=== PATIENT | female | born 1975 | race Caucasian/White ===

== ENCOUNTER 2016-04-05 15:47 | Outpatient (CLI) | payer OTHER ==
[2015-11-24 13:34] VITALS: BP 132/74
[2016-04-05 16:13] LABS: BASOPHILS % 0.3 (0.0-1.5); LYMPHOCYTES # 2.1 # k/uL (0.6-4.0); MEAN CORPUSCULAR HEMOGLOBIN 32.1 pg (28.0-34.0); MONOCYTES # 0.4 # k/uL (0.0-0.9); MONOCYTES % 5.3 % (0.0-11.0); NEUTROPHILS # 5.7 # k/uL (1.4-7.7)
[2016-04-05 16:31] LABS: eGFR (African) > 60; eGFR (Non-African) > 60
[2016-04-07 12:00] LABS: ADENOVIRUS F 40/41 Not Detected (Not Detected); ASTROVIRUS Not Detected (Not Detected); C. DIFFICILE (TOXIN A/B) Not Detected (Not Detected); CRYPTOSPORIDIUM Not Detected (Not Detected); CYCLOSPORA CAYETANENSIS Not Detected (Not Detected); ENTAMOEBA HISTOLYTICA Not Detected (Not Detected); GIARDIA LAMBLIA Not Detected (Not Detected); ROTAVIRUS A Not Detected (Not Detected); SAPOVIRUS Not Detected (Not Detected); VIBRIO CHOLERAE Not Detected (Not Detected)
== END 2016-04-05 15:50 ==
LOC: LAB 15:47
PROVIDERS: ATTEND Physician Assistant
DX: A09 Infectious gastroenteritis and colitis, unspecified (principal)
CPT/HCPCS: 36415; 80053; 85025; 87507

== ENCOUNTER 2016-06-20 16:08 | Outpatient (CLI) | payer OTHER ==
[2015-11-24 13:34] VITALS: BP 132/74
--- NOTE | 2016-06-20 17:45 | Diagnostic Imaging Report ---
[facility] [address] [facility].[address] [address] Report Submission Date: June 20, 2016 5:32:42 PM CDT Patient Study Name: KIRSTEN DUNHAM Date: June 20, 2016 4:14:59 PM CDT Modality Type: CR Gender: F Description: LOWER EXTREMITY : 73 Institution: [facility] Physician: DANAE HORTON - OP 3 views of the right foot Clinical history: Right foot pain Findings: No acute fracture dislocation is identified. The alignment is normal. The soft tissues are unremarkable. Impression: Negative Electronically signed on June 20, 2016 5:32:42 PM CDT by: Clive PURDY
== END 2016-06-20 16:10 ==
LOC: RAD 16:08
PROVIDERS: ATTEND Family Medicine
DX: M79.671 Pain in right foot (principal)
CPT/HCPCS: 73630

== ENCOUNTER 2016-08-28 17:49 | Emergency (ER) | payer OTHER ==
[2016-08-28] MEDS: 0.9 % SODIUM CHLORIDE 1,000 ML IV ONE (18:10)
[2016-08-28 18:18] LABS: BASOPHILS % 0.6 (0.0-1.5); EOSINOPHILS % 1.5 % (0.0-6.8); MEAN CORPUSCULAR HEMOGLOBIN 31.8 pg (28.0-34.0); MEAN CORPUSCULAR VOLUME 91.3 fl (80.0-100.0); MONOCYTES % 6.9 % (0.0-11.0); NEUTROPHILS # 6.9 # k/uL (1.4-7.7)
[2016-08-28 18:36] LABS: eGFR (African) > 60; eGFR (Non-African) > 60
--- NOTE | 2016-08-28 18:44 | ED Physician Documentation ---
General Adult - HISTORIAN Historian: patient - HPI Stated Complaint: finger pain Chief Complaint: General Adult Further Comments: yes (41 year old female patient presents with complaints of numbness and tingling in right and left ring fingers. Patient reports coming home today from a weekend float trip[place], reports drinking "large" amount of ETOH Monday. Reports no water intake. C/O sunburn on entire body. C/o mild MÉNDEZ.) - ROS CONST: no problems EYES/ENT: none CVS/RESP: none GI/: none MS/SKIN/LYMPH: none NEURO/PSYCH: headache - PAST HX Past History: none Allergies/Adverse Reactions: Allergies Allergy/AdvReac Type Severity Reaction Status Date / Time hydromorphone HCl Allergy Intermediate Rash Verified 08/28/16 18:16 [From Dilaudid] - SOCIAL HX Smoking History: cigarettes Alcohol Use: heavy (daily) - FAMILY HX Family History: No - VITAL SIGNS Vital Signs: Vital Signs Temp Pulse Resp BP Pulse Ox 98.4 F 100 H 18 139/98 98 08/28/16 18:00 08/28/16 18:00 08/28/16 18:00 08/28/16 18:00 08/28/16 18:00 - REVIEWED ASSESSMENTS Nursing Assessment Reviewed: Yes Vitals Reviewed: Yes Progress - Progress Progress: Reviewed lab results with patient. Education on hyponatremia related to polydipsia. Offered admission for monitoring. Patient does not want admission at this time. Risk and benefits explained. Reviewed out patient plan of care - encouraged rest, fluid restriction and follow up with Dr Conroy Monday. Patient verbalized understanding. ED Results Lab/Radiology - Lab Results Lab Results: Lab Results 08/28/16 08/28/16 18:11 18:11 WBC 10.50 K/ul K/ul (4.00-12.00) RBC 4.73 M/ul M/ul (3.90-5.20) Hgb 15.1 g/dL g/dL (12.0-16.0) Hct 43.2 % % (34.5-46.5) MCV 91.3 fl fl (80.0-100.0) MCH 31.8 pg pg (28.0-34.0) MCHC 34.9 g/dL g/dL (30.0-36.0) RDW 13.1 % % (11.3-14.3) Plt Count 199 K/mm3 K/mm3 (130-400) Neut % (Auto) 65.9 % % (39.0-79.0) Lymph % (Auto) 23.2 % % (16.0-50.0) Bandera % (Auto) 6.9 % % (0.0-11.0) Eos % (Auto) 1.5 % % (0.0-6.8) Baso % (Auto) 0.6 (0.0-1.5) Neut # (Auto) 6.9 # k/uL # k/uL (1.4-7.7) Lymph # (Auto) 2.4 # k/uL # k/uL (0.6-4.0) Bandera # (Auto) 0.7 # k/uL # k/uL (0.0-0.9) Eos # (Auto) 0.2 # k/uL # k/uL (0.0-0.6) Baso # (Auto) 0.1 # k/uL # k/uL (0.0-0.5) Reactive Lymphs % 2.0 % % (0.0-5.0) Reactive Lymphs # 0.2 # k/uL # k/uL (0.0-0.8) Sodium 127 mmol/L L mmol/L (136-145) Potassium 3.5 mmol/L mmol/L (3.5-5.0) Chloride 94 mmol/L L mmol/L (98-110) Carbon Dioxide 26 mmol/L mmol/L (20-32) BUN 7 mg/dL L mg/dL (10-26) Creatinine 0.7 mg/dL mg/dL (0.4-1.5) Estimated Creat Clear 149 Est GFR ( Amer) > 60 (60 - ) Est GFR (Non-Af Amer) > 60 (60 - ) Glucose 118 mg/dL H mg/dL (70-99) Calcium 9.1 mg/dL mg/dL (8.5-10.5) Total Bilirubin 1.6 mg/dL H mg/dL (0.2-1.2) AST 31 U/L U/L (0-41) ALT 32 U/L U/L (0-45) Alkaline Phosphatase 70 U/L U/L (46-116) Total Protein 8.3 g/dL g/dL (6.0-8.5) Albumin 4.4 g/dL g/dL (3.0-5.5) - Orders Orders: ED Orders Category Date Time Status Place IV Lock 1T Care 08/28/16 18:02 Active CBC/PLATELET/DIFF Stat Lab 08/28/16 18:11 Completed CMP Stat Lab 08/28/16 18:11 Completed 0.9 % Sodium Chloride [Normal Saline] 1,000 ml Med 08/28/16 18:02 Discontinued IV NOW General Adult Physical Exam - PHYSICAL EXAM GENERAL APPEARANCE: mild distress EENT: eye inspection normal, DENY RESPIRATORY: no resp distress, chest non-tender, breath sounds normal CVS: reg rate & rhythm, heart sounds normal, equal pulses, no murmur, no gallop , PMI nml, no JVD, no friction rub, 24 ABDOMEN: soft, no organomegaly, normal bowel sounds, no abdominal bruit, no distension SKIN: warm/dry, normal color, other (sunburn on truck, arms and legs - 1st degree) EXTREMITIES: non-tender, normal range of motion, no evidence of injury, no edema , J, 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 Condition: Stable Disposition: 01 HOME, SELF-CARE Decision to Admit: NO Decision Time: 18:52
[2016-08-28 20:16] VITALS: BP 161/94
== END 2016-08-28 19:05 | disposition home or self-care (01) ==
LOC: ED 17:49
DX: E87.1 Hypo-osmolality and hyponatremia (principal)
CPT/HCPCS: 80053; 85025; J7030; 96360; 99283; S1016

== ENCOUNTER 2017-04-04 10:21 | Outpatient (CLI) | payer BC ==
[2017-04-04 10:35] LABS: BASOPHILS % 0.4 (0.0-1.5); EOSINOPHILS % 1.6 % (0.0-6.8); MEAN CORPUSCULAR HEMOGLOBIN 31.6 pg (28.0-34.0); MEAN CORPUSCULAR VOLUME 94.2 fl (80.0-100.0); MONOCYTES % 7.7 % (0.0-11.0)
[2017-04-04 11:02] LABS: eGFR (African) > 60; eGFR (Non-African) > 60
== END 2017-04-04 10:22 ==
LOC: LAB 10:21
PROVIDERS: ATTEND Physician Assistant
DX: R20.2 Paresthesia of skin (principal)
CPT/HCPCS: 36415; 80053; 82607; 85025

== ENCOUNTER 2017-09-15 09:45 | Emergency (ER) | payer BC ==
--- NOTE | 2017-09-15 09:55 | ED Physician Documentation ---
General Adult - HISTORIAN Historian: patient - HPI Stated Complaint: "feeling off" Chief Complaint: Weakness Onset: days ago (2) Timing: still present Severity: moderate Further Comments: yes (She does note a history of COPD and for last few days not feeling "well" however this am when she did wake she was more short on air than usual. She denies any fever. She has some weakness and feeling fatigued today so she left work. She denies any chest pain. She does continue to smoke. She was treated at the ER at the [place] and she was told she had hypertension. She is not taking any meds for COPD) - ROS CONST: no problems EYES/ENT: denies: sore throat, nasal drainage CVS/RESP: shortness of breath, cough. denies: chest pain GI/: none MS/SKIN/LYMPH: none. denies: rash NEURO/PSYCH: headache, dizziness - PAST HX Past History: hypertension Surgeries/Procedures: hysterectomy Immunizations: referred to PCP Allergies/Adverse Reactions: Allergies Allergy/AdvReac Type Severity Reaction Status Date / Time hydromorphone HCl Allergy Intermediate Rash Verified 09/15/17 10:03 [From Dilaudid] varenicline tartrate Allergy Hallucinati Verified 09/15/17 10:03 [From Chantix] ons - SOCIAL HX Smoking History: cigarettes Alcohol Use: none Drug Use: none - FAMILY HX Family History: No - VITAL SIGNS Vital Signs: Vital Signs Temp Pulse Resp BP Pulse Ox 161/94 08/28/16 19:05 - REVIEWED ASSESSMENTS Nursing Assessment Reviewed: Yes Vitals Reviewed: Yes Progress - Progress Progress: 1050: symptoms are improving per her statement. DG 1056: results and plan discussed with pt and father. Voiced understanding and agreement DG ED Results Lab/Radiology - Radiology Radiology Impressions: Examination: PA and lateral chest. History: Evaluate lung garrison. CXR, WEAKNESS TODAY, PT STATES HX OF COPD, SMOKER (Hx) Comparison exam: None provided. Findings: PA lateral chest demonstrate a normal cardiac and mediastinal silhouette. No focal infiltrate. No blunting of the costophrenic margins. Osseous structures are appropriate for age. Impression: No acute pulmonary process. Electronically signed on Sep 15, 2017 10:39:12 AM CDT by: Elroy Rush General Adult Physical Exam - PHYSICAL EXAM GENERAL APPEARANCE: mild distress EENT: eye inspection normal, ENT inspection normal, pharynx normal, TM's nml NECK: normal inspection RESPIRATORY: wheezes, rhonchi (expiratory -mild resp distress - she is able to speak full sentences with mild shortness of air ) ABDOMEN: soft, normal bowel sounds, no distension BACK: normal inspection SKIN: warm/dry, normal color EXTREMITIES: non-tender, normal range of motion, no evidence of injury, no edema NEURO: oriented X3, CN's nml as tested, motor nml, sensation nml, mood/affect nml, cognition normal Discharge Clincal Impression: Bronchitis Referrals: Luis Carlos Conroy MD [Primary Care Provider] - 2 Days Additional Instructions: 1. ProAir 90 mcg take 2 puffs by mouth every 4-6 hours as needed for cough 2. Medrol Dose pack 4 mg - take as directed start 09.16.2017 at noon 3. Stop smoking 4. Follow up with PCP as scheduled 5. Return to ER for any concerns Condition: Stable Disposition: 01 HOME, SELF-CARE Decision to Admit: NO Date of Decison to Admit: 09/15/17 Decision Time: 10:59
[2017-09-15] MEDS: IPRATROPIUM/ALBUTEROL SULFATE 3 ML AMPUL.NEB NEB ONE (10:12)
[2017-09-15 10:26] LABS: BASOPHILS % 0.5 (0.0-1.5); EOSINOPHILS % 1.3 % (0.0-6.8); MEAN CORPUSCULAR HEMOGLOBIN 31.5 pg (28.0-34.0); MEAN CORPUSCULAR VOLUME 94.6 fl (80.0-100.0); MONOCYTES % 6.3 % (0.0-11.0); NEUTROPHILS # 3.6 # k/uL (1.4-7.7)
[2017-09-15 10:42] LABS: eGFR (African) > 60; eGFR (Non-African) > 60
[2017-09-15] MEDS: methylPREDNISolone SOD SUCC 125 MG/2 ML VIAL ONE (10:59)
[2017-09-15] MEDS: methylPREDNISolone SOD SUCC 125 MG/2 ML VIAL IVP ONE (10:59)
[2017-09-15 11:12] VITALS: BP 152/89
--- NOTE | 2017-09-15 18:30 | Diagnostic Imaging Report ---
[facility] [employer] [address] [facility] [address] [place], [place]. [address] Report Submission Date: Sep 15, 2017 10:39:12 AM CDT Patient Study Name: CHARLA May Date: Sep 15, 2017 10:18:47 AM CDT Modality Type: DX Gender: F Description: CHEST : 73 Institution: [facility] Physician: GRANT FLOWERS Examination: PA and lateral chest. History: Evaluate lung garrison. CXR, WEAKNESS TODAY, PT STATES HX OF COPD, SMOKER (Hx) Comparison exam: None provided. Findings: PA lateral chest demonstrate a normal cardiac and mediastinal silhouette. No focal infiltrate. No blunting of the costophrenic margins. Osseous structures are appropriate for age. Impression: No acute pulmonary process. Electronically signed on Sep 15, 2017 10:39:12 AM CDT by: Elroy PURDY
== END 2017-09-15 11:09 | disposition home or self-care (01) ==
LOC: ED 09:45
DX: J40 Bronchitis, not specified as acute or chronic (principal)
CPT/HCPCS: 71046; 80053; 84484; 85025; 85610; 93005; J2930; 94640; 96374; S1016

== ENCOUNTER 2017-10-24 11:29 | Emergency (ER) | payer BC, OTHER ==
--- NOTE | 2017-10-24 12:11 | ED Physician Documentation ---
Dyspnea - HPI Stated Complaint: SOA Chief Complaint: Dyspnea Additional Information: Patient presents to ED with a 2 day history of increasing shortness of breath and productive cough. Patient states she was diagnosed with COPD about 3 weeks ago in [place]. She went to the ER there with similar symptoms and was prescribed a steroid taper. Her symptoms improved until about 3 days ago. She reports her breathing is worse at night and on several occasion she has awoke from sleep gasping for air. Patient reports productive cough copious amounts of yellow/white sputum. She has also had chills and left flank pain. Patient reports she ran out of her blood pressure medication several months ago. Today blood pressure 133/103 Onset: hours (2) Duration: continues in ED Initiating Event: other (coughing) Severity: moderate Exacerbated By: laying flat, coughing Associated Symptoms: chills, chest discomfort, other (left flank pain) Further Comments: no - ROS CONST: no problems EYES/ENT: sore throat GI/: denies: abdominal pain NEURO/PSYCH: denies: headache MS/SKIN/LYMPH: denies: swollen glands - PAST HX Lung Disease: COPD Cardiac Disease: none PE Risk Factors: hypertension. denies: recent surgery Surgeries/Procedures: none Allergies/Adverse Reactions: Allergies Allergy/AdvReac Type Severity Reaction Status Date / Time hydromorphone HCl Allergy Intermediate Rash Verified 10/24/17 11:51 [From Dilaudid] varenicline tartrate Allergy Hallucinati Verified 10/24/17 11:51 [From Chantix] ons Home Medications: Ambulatory Orders Medication Instructions Recorded Albuterol Sulfate [Proair HFA] 1 inh IH Q4 #1 hfa.aer.ad 10/24/17 Albuterol Sulfate [Proair Hfa] 1 puff IH PRN PRN 10/24/17 Alprazolam [Xanax] 0.5 mg PO TID 10/24/17 Ipratropium/Albuterol Sulfate 3 ml NEB QID #120 ampul.neb 10/24/17 [Duoneb] Montelukast Sodium [Singulair] 10 mg PO HS #30 tablet 10/24/17 Prednisone 10 mg PO DIRECTED #40 tablet 10/24/17 amLODIPine BESYLATE [Norvasc] 5 mg PO 0900 #30 tablet 10/24/17 - SOCIAL HX Smoking History: cigarettes (30 pack year history) Drug Use: none - FAMILY HX Family History: cardiac disease - VITAL SIGNS Vital Signs: Vital Signs Temp Pulse Resp BP Pulse Ox 98.3 F 93 H 24 158/98 91 L 10/24/17 11:29 10/24/17 11:29 10/24/17 11:29 10/24/17 11:29 10/24/17 11:29 - REVIEWED ASSESSMENTS Nursing Assessment Reviewed: Yes Vitals Reviewed: Yes Progress - Progress Progress: 1438 Air entry with ascultation improved. Wheezing improved ED Results Lab/Radiology - Radiology Radiology Impressions: PA and lateral chest History: Short of breath and cough PA and lateral chest dated October 24, 2017 is compared with September 15, 2017 The cardiomediastinal silhouette is normal. Pulmonary vascularity is normal. There is no confluent infiltrate or pleural effusion. Impression: No active disease. Dyspnea Physical Exam - EXAM General Appearance: no acute distress, alert EENT: eye inspection normal Neck: No: lymphadenopathy Respiratory: other (diffuse inspiratory/expiratory wheezing bilaterally) CVS: other (tachycardia) Abdomen: non-tender, no distention, tenderness Rectal: deferred Skin: color nml Extremities: no edema Neuro/Psych: oriented x3 Discharge Clincal Impression: Acute exacerbation of chronic obstructive pulmonary disease (COPD) Referrals: Luis Carlos Conroy MD [Primary Care Provider] - 2 Days Additional Instructions: Take daily Claritin, Zyrtec. May add Benedryl at night. Continue to work on smoking cessation. Avoid allergens Condition: Good Disposition: 01 HOME, SELF-CARE Decision to Admit: NO Date of Decison to Admit: 10/24/17 Decision Time: 14:41
[2017-10-24] MEDS ORDERED: IPRATROPIUM/ALBUTEROL SULFATE 3 ML AMPUL.NEB NEB ONE ×2 (12:19→13:45)
[2017-10-24] MEDS ORDERED: methylPREDNISolone SOD SUCC 125 MG/2 ML VIAL IVP ONE (12:19)
[2017-10-24 12:57] LABS: BASOPHILS % 0.8 (0.0-1.5); EOSINOPHILS % 1.5 % (0.0-6.8); MEAN CORPUSCULAR HEMOGLOBIN 30.8 pg (28.0-34.0); MEAN CORPUSCULAR VOLUME 92.9 fl (80.0-100.0); MONOCYTES % 6.5 % (0.0-11.0); NEUTROPHILS # 3.6 # k/uL (1.4-7.7)
[2017-10-24 13:05] LABS: eGFR (Non-African) > 60
[2017-10-24 15:13] VITALS: BP 162/72
--- NOTE | 2017-10-24 15:39 | Diagnostic Imaging Report ---
DANAE HORTON [facility] [address] [address] Report Submission Date: Oct 24, 2017 1:49:10 PM CDT Patient Study Name: KIRSTEN DUNHAM Date: Oct 24, 2017 1:12:23 PM CDT Modality Type: DX Gender: F Description: CHEST : 73 Institution: [facility] Physician: DANAE HORTON PA and lateral chest History: Short of breath and cough PA and lateral chest dated October 24, 2017 is compared with September 15, 2017 The cardiomediastinal silhouette is normal. Pulmonary vascularity is normal. There is no confluent infiltrate or pleural effusion. Impression: No active disease. Electronically signed on Oct 24, 2017 1:49:10 PM CDT by: Ayesha PURDY
== END 2017-10-24 15:05 | disposition home or self-care (01) ==
LOC: ED 11:29
DX: J44.1 Chronic obstructive pulmonary disease with (acute) exacerbation (principal)
CPT/HCPCS: 71046; 80048; 85025; J2930; 94640; 96374; S1016

== ENCOUNTER 2019-02-26 13:46 | Outpatient (CLI) | payer BC ==
--- NOTE | 2019-02-26 14:28 | Diagnostic Imaging Report ---
PATIENT MR#: [id number] PATIENT PATIENT NAME: CHARLA May DATE OF : 1975 REFERRING PHYSICIAN: Luis Carlos Conroy EXAM DATE: 02/26/2019 ACCESSION NUMBER: [id number] EXAM DESCRIPTION: CHEST 2VIEW HISTORY: Chest pain radiating to shoulders. COPD. COMPARISON: October 24, 2017. CHEST RADIOGRAPH, FRONTAL AND LATERAL: Upper mediastinum: Not widened. Heart: No cardiomegaly. Lungs: Hyperinflation of COPD. No lobar infiltrate, pulmonary edema, pneumothorax or significant effu lidia. Skeleton: No acute findings. IMPRESSION: No acute thoracic process. COPD. Read by: Dr. Artemio Childs Transcribed by: Artemio Childs Transcribed Date: 02/26/2019 2:28:09 PM Electronically signed by: Dr. Artemio Childs Date signed: 02/26/2019 2:28:09 PM
== END 2019-02-26 13:56 ==
LOC: RT 13:46
PROVIDERS: ATTEND Family Medicine
DX: R07.9 Chest pain, unspecified (principal); M79.652 Pain in left thigh
CPT/HCPCS: 36415; 80053; 80061; 84484; 85025; 93005